=== PATIENT | female | born 1960 | race Caucasian/White ===

== ENCOUNTER 2016-05-19 08:42 | Emergency (ER) | payer BC ==
[2016-05-19] MEDS ORDERED: Acyclovir 400 MG in Sodium Chloride 0.9% 100 ML IV STA (09:12)
--- NOTE | 2016-05-19 09:32 | CT ---
PROCEDURE: CT HEAD WITHOUT CONTRAST. HISTORY: Left Quiñones's palsy COMPARISON: None available. TECHNIQUE: Axial computed tomography images were obtained through the head/brain without intravenous contrast. Radiation dose: Total exam DLP = 796.59 mGy-cm. FINDINGS: HEMORRHAGE: No intracranial hemorrhage. BRAIN: Connors-white matter differentiation is preserved. There is no mass, mass effect or abnormal extra-axial fluid collection. There is normal density in the larger dural venous sinuses. VENTRICLES: The ventricles are normal in size, shape and configuration. CALVARIUM: The skull base and calvarium are normal. PARANASAL SINUSES: Predominantly clear. MASTOID AIR CELLS: Predominantly clear. OTHER FINDINGS: None. IMPRESSION: No acute intracranial abnormality.
--- NOTE | 2016-05-19 09:44 | C.PDOC ---
History Of Present Illness 55 year old female presents to the ED with complaints of numbness and weakness to the left side of her face since 15:00 yesterday. Denies visual changes, dizziness, confusion, change in speech, or any other complaints at this time. Time Seen by Provider: 05/19/16 08:55 Chief Complaint (Nursing): Weakness/Neurological Deficit History Per: Patient History/Exam Limitations: no limitations Onset/Duration Of Symptoms: Days Current Symptoms Are (Timing): Still Present Seizure Or Post-ictal Symptoms: None Fall Associated With With Symptoms: No Severity: Mild Past Medical History Reviewed: Historical Data, Nursing Documentation, Vital Signs Vital Signs: Last Vital Signs Temp 97.7 F 05/19/16 11:14 Pulse 60 05/19/16 11:14 Resp 20 05/19/16 11:14 BP 133/81 05/19/16 11:14 Pulse Ox 97 05/19/16 12:31 - [facility] Procedures INJECT/INFUSE NEC (05/04/14) Family History: States: Unknown Family Hx - Social History Hx Tobacco Use: No Hx Alcohol Use: No Hx Substance Use: No - Immunization History Hx Tetanus Toxoid Vaccination: No Hx Influenza Vaccination: No Hx Pneumococcal Vaccination: No Review Of Systems Except As Marked, All Systems Reviewed And Found Negative. Constitutional: Negative for: Fever, Chills Eyes: Negative for: Vision Change Cardiovascular: Negative for: Chest Pain Musculoskeletal: Negative for: Neck Pain Neurological: Positive for: Weakness, Numbness (+To left face). Negative for: Change in Speech, Confusion, Dizziness Physical Exam - Physical Exam Appears: Non-toxic Skin: Normal Color, Warm, Dry Head: Atraumatic, Normacephalic Eye(s): bilateral: PERRL, EOMI, left: Other (unable to fully close the left eye) Ear(s): Bilateral: Normal Oral Mucosa: Moist Neck: No Midline Cervical Tenderness, No Paracervical Tenderness, Supple Chest: Symmetrical, No Deformity Cardiovascular: Rhythm Regular, No Murmur Respiratory: Normal Breath Sounds, No Accessory Muscle Use, No Rales, No Rhonchi , No Wheezing Extremity: Normal ROM, No Deformity Neurological/Psych: Oriented x3, Normal Speech, Normal Cognition, No Normal Cranial Nerves (VII nerve palsy), No Normal Motor (left facial paralysis including forehead), Normal Sensation (decreased sensation in the left face) ED Course And Treatment - Laboratory Results Result Diagrams: 05/19/16 09:51 05/19/16 09:51 O2 Sat by Pulse Oximetry: 97 (Room air) Pulse Ox Interpretation: Normal - CT Scan/US Head CT Other Rad Studies (CT/US): Read By Radiologist, Radiology Report Reviewed CT/US Interpretation: Accession No. : [id number]. Patient Name / ID : ILSA [id number] / [id number]. Exam Date : 05/19/2016 09:24:31 ( Approved ). Study Comment : Sex / Age : F / 55Y. Creator : Tiffanie Arreola MD. Dictator : Tiffanie Arreola MD. Aviation Support Equipment Repairer : Toxicology Teacher : Tiffanie Arreola MD. Approver2 : Report Date : 05/19/2016 09:30:33. My Comment : . PROCEDURE: CT HEAD WITHOUT CONTRAST. HISTORY: Left Quiñones's palsy. COMPARISON: None available. TECHNIQUE: Axial computed tomography images were obtained through the head/ brain without intravenous contrast. Radiation dose: Total exam DLP = 796.59 mGy-cm. FINDINGS: HEMORRHAGE: No intracranial hemorrhage. BRAIN: Connors- white matter differentiation is preserved. There is no mass, mass effect or abnormal extra-axial fluid collection. There is normal density in the larger dural venous sinuses. VENTRICLES: The ventricles are normal in size, shape and configuration. CALVARIUM: The skull base and calvarium are normal. PARANASAL SINUSES: Predominantly clear. MASTOID AIR CELLS: Predominantly clear. OTHER FINDINGS: None. IMPRESSION: No acute intracranial abnormality. Progress Note: CT Head w/o contrast, Blood work, and Urinalysis ordered and reviewed. Patient treated with Solu-Medrol and Acyclovir IV. Rx given and patient advsied to follow up with her PMD in 1-2 days. Disposition - Disposition Referrals: [facility] [Outside] [facility] [Outside] Disposition: HOME/ ROUTINE Disposition Time: 10:45 Condition: STABLE Additional Instructions: Follow up with PMD within 1-2 days. Return to Ed if feel worse. Prescriptions: Dextran 70/Hypromellose [Artificial Tears] 1 each OP Q1 #1 bot Prednisone 10 mg PO DAILY #48 tab.ds.pk Acyclovir [Zovirax] 400 mg PO 5XD #50 tab Instructions: Quiñones Palsy (ED) Print Language: SWEDISH - Clinical Impression Clinical Impression: Quiñones palsy - PA / SAND ANALYST / Resident Statement MD/DO has reviewed & agrees with the documentation as recorded. - Scribe Statement The provider has reviewed the documentation as recorded by the Scribe Linnette Ruiz. All medical record entries made by the Scribe were at my direction and personally dictated by me. I have reviewed the chart and agree that the record accurately reflects my personal performance of the history, physical exam, medical decision making, and the department course for this patient. I have also personally directed, reviewed, and agree with the discharge instructions and disposition.
[2016-05-19 10:00] LABS: BASO % 0.3 % (0.0-2.0); EOS # 0.1 K/uL (0.0-0.7); HEMATOCRIT 40.8 % (34.0-47.0); LYMPH # 1.9 K/uL (1.0-4.3); LYMPH % 30.1 % (20.0-40.0); MEAN CORPUSCULAR HEMOGLOBIN 28.7 pg (27.0-31.0); MEAN CORPUSCULAR HGB CONC 33.1 g/dL (33.0-37.0); MEAN PLATELET VOLUME 10.3 fL (7.2-11.7); MONO # 0.4 K/uL (0.0-0.8); MONO % 7.1 % (0.0-10.0); RED CELL DISTRIBUTION WIDTH 14.2 % (11.5-14.5); WHITE BLOOD COUNT 6.2 K/uL (4.8-10.8)
[2016-05-19 10:01] LABS: MEAN CELL VOLUME 86.7 fL (81.0-99.0)
[2016-05-19 10:04] LABS: RBC URINE < 1 /hpf (0-3); URINE BACTERIA RARE (<OCC); URINE BILIRUBIN NEGATIVE (NEGATIVE); URINE BLOOD NEGATIVE (NEGATIVE); URINE COLOR Colorless (YELLOW); URINE GLUCOSE (UA) NORMAL (Normal); URINE KETONE NEGATIVE (NEGATIVE); URINE LEUKOCYTE ESTERASE TRACE Leu/uL (Negative); URINE PROTEIN NEGATIVE (NEGATIVE); URINE UROBILINOGEN NORMAL mg/dL (0.2-1.0); WBC URINE < 1 /hpf (0-5)
[2016-05-19 10:07] LABS: CHLORIDE 100 mmol/L (98-107)
[2016-05-19 10:08] LABS: POTASSIUM 3.7 mmol/L (3.6-5.2); SODIUM 140 mmol/L (132-148)
[2016-05-19 10:10] LABS: ALB/GLOB RATIO 1.2 (1.0-2.1); ALKALINE PHOSPHATASE 94 U/L (38-126); AST/SGOT 29 U/L (14-36); BILIRUBIN,TOTAL 0.8 mg/dL (0.2-1.3); CARBON DIOXIDE 26 mmol/L (22-30); GFR AFRICAN-AMERICAN > 60; TOTAL PROTEIN 8.1 g/dL (6.3-8.3)
[2016-05-19 10:11] LABS: ALT/SGPT 38 U/L (9-52); BLOOD UREA NITROGEN 9 mg/dL (7-17); CALCIUM 8.8 mg/dl (8.6-10.4); GLUCOSE,RANDOM 102 mg/dL (65-105)
[2016-05-19 11:15] VITALS: BP 133/81; PULSE 60; RESP 20; TEMP 97.7
[2016-05-19 12:27] VITALS: O2SAT 97
== END 2016-05-19 11:14 | disposition home or self-care (01) ==
LOC: C.ER 08:42
DX: G51.0 Bell's palsy (principal)
CPT/HCPCS: 70450; 80053; 81001; 85025; 96365; 96375; 99285; J0133; J2930